=== PATIENT | male | born 1990 | race Caucasian/White ===

== ENCOUNTER 2019-03-26 20:05 | Emergency (ER) | payer OTHER, SELFPAY ==
[2019-03-26 20:25] VITALS: BP 161/96; PULSE 85; RESP 18; TEMP 37.2; O2SAT 98; BMI 37.8
[2019-03-26] MEDS: cephALEXin 250 MG CAPSULE 500 MG PO (20:43)
--- NOTE | 2019-03-26 21:15 | ED.SKABFB ---
HPI - Skin/Abscess/Foreign Bdy <ROSALES Brunson - Last Filed: 03/26/19 21:18> General Chief complaint: Skin/Abscess/Foreign Body Stated complaint: states infected skin tag/ mole on lwr left abdomen Time Seen by Provider: 03/26/19 20:19 Source: patient and family Mode of arrival: ambulatory Limitations: no limitations History of Present Illness HPI narrative: The patient is a 29-year-old male current smoker with history of right ankle sprain who presents with a chief complaint of a infection. He states that the infection is on his left lower quadrant, we tried to cut off his own skin tag with a knife. He states it happened earlier today, but since then he has noted increasing pain, and redness extending from the site. He denies any fevers nausea vomiting diarrhea chest pain or shortness of breath. Related Data Home Medications Medication Instructions Recorded Confirmed acetaminophen 325 mg PO #0 02/19/17 Previous Rx's Medication Instructions Recorded ibuprofen 800 mg PO Q8HP PRN #30 tab 02/19/17 cephalexin 500 mg PO TID 10 Days #30 cap 03/26/19 Allergies Allergy/AdvReac Type Severity Reaction Status Date / Time No Known Drug Allergies Allergy Verified 03/26/19 20:38 Review of Systems <ROSALES Brunson - Last Filed: 03/26/19 21:18> Review of Systems GENERAL: Denies chills, fatigue, malaise, fever, sweats. HEENT: Denies sinus pain, ear pain, sore throat, difficulty swallowing, dizziness. RESPIRATORY: Denies dyspnea, cough, wheezing, hemoptysis, sputum. CARDIOVASCULAR: Denies chest pain, palpitations, orthopnea, edema, GASTROINTESTINAL: Denies nausea, vomiting, abdominal pain, diarrhea, constipation, melena. : Denies dysuria, frequency, incontinence, hematuria, urinary retention. MUSCULOSKELETAL: denies weakness, joint pain, or bony pain SKIN: See HPI NEUROLOGIC: Denies weakness, headache, numbness, change in speech, confusion, seizures, incoordination. PSYCHIATRIC: No concerning psychosocial issues. 12 point review of systems is negative except for those stated above PFSH <CARLOS Brunson - Last Filed: 03/26/19 21:18> Social History Smoking Status: Current every day smoker Social History Smoking Status: Current every day smoker Exam <ROSALES Brunson - Last Filed: 03/26/19 21:18> Narrative Exam Narrative: GENERAL: Obese male in no acute distress HEAD: Atraumatic. Normocephalic. No temporal or scalp tenderness. EYES: Pupils equal round and reactive. Extraocular motions intact. No scleral icterus. No injection or drainage. ENT: Nose without bleeding, purulent drainage or septal hematoma. Throat without erythema, tonsillar hypertrophy or exudate. Uvula midline. Airway patent. NECK: Trachea midline. No JVD or lymphadenopathy. Supple, nontender, no meningeal signs. CARDIOVASCULAR: Regular rate and rhythm without murmurs, gallops, or rubs. RESPIRATORY: Clear to auscultation. Breath sounds equal bilaterally. No wheezes, rales, or rhonchi. No cough. No increased respiratory effort. No accessory muscle use. GASTROINTESTINAL: Abdomen soft, non-tender, nondistended. No hepato-splenomegaly, or palpable masses. No guarding. EXTREMITIES: No clubbing, cyanosis, or edema. No joint tenderness, effusion, or edema noted. BACK: Nontender without deformity or crepitance. No flank tenderness. NEURO: AOx3. SKIN: Wound noted on left lower quadrant of abdomen. Appears to be skin tag, with home removal attempt. Erythematous. No drainage noted. 2 cm of erythema surrounding site. Warm to touch. Initial Vital Signs Initial Vital Signs: Vital Signs Temperature 98.9 F 03/26/19 20:25 Pulse Rate 85 03/26/19 20:25 Respiratory Rate 18 03/26/19 20:25 Blood Pressure 161/96 H 03/26/19 20:25 Pulse Oximetry 98 03/26/19 20:25 <Servando Rincon DO - Last Filed: 03/27/19 07:03> Initial Vital Signs Initial Vital Signs: Vital Signs Temperature 98.9 F 03/26/19 20:25 Pulse Rate 85 03/26/19 20:25 Respiratory Rate 18 03/26/19 20:25 Blood Pressure 161/96 H 03/26/19 20:25 Pulse Oximetry 98 03/26/19 20:25 Course <ROSALES Brunson - Last Filed: 03/26/19 21:18> Orders Ordered: Discontinued Medications Cephalexin HCl (Keflex) 500 mg PO NOW ONE Stop: 03/26/19 20:30 Last Admin: 03/26/19 20:43 Dose: 500 mg Vital Signs - 8 hr 03/26/19 20:25 Temperature 98.9 F Pulse Rate 85 Respiratory Rate 18 Blood Pressure 161/96 H Pulse Oximetry 98 <Servando Rincon DO - Last Filed: 03/27/19 07:03> Orders Ordered: Discontinued Medications Cephalexin HCl (Keflex) 500 mg PO NOW ONE Stop: 03/26/19 20:30 Last Admin: 03/26/19 20:43 Dose: 500 mg Vital Signs - 8 hr 03/26/19 20:25 Temperature 98.9 F Pulse Rate 85 Respiratory Rate 18 Blood Pressure 161/96 H Pulse Oximetry 98 MDM - Skin/Abscess/Foreign Bdy <NEREIDA Brunson- - Last Filed: 03/26/19 21:18> MDM Narrative Medical decision making narrative: The patient is a 29-year-old male who presents with a chief complaint of possible skin infection. The patient unfortunately decided to remove his own skin tag at home, resulting in erythema and pain. His exam indicates early cellulitis, so I initiated treatment with Keflex. Discussed at length monitoring for signs of worsening infection including redness, fever etc. Encouraged follow-up with PCP. Patient was given contact information for [facility] health coordinator. No questions or concerns upon discharge. Discharge Plan Departure Patient Disposition: Home Clinical Impression: Cellulitis Qualifiers: Site of cellulitis: trunk Site of cellulitis of trunk: abdominal wall Qualified Code(s): L03.311 - Cellulitis of abdominal wall Discharge Date/Time: 03/26/19 21:11 Interventions: ED Discharge Assessment Last Done: 03/26/19 21:11 Instructions: DI for Cellulitis -- Adult Activity Restrictions/Additional Instructions: Please do not cut off your own skin tags anymore. Please follow up with primary care provider. I have given you contact information of the [facility] health resource conservation specialist. Please monitor for fever, spreading of redness or any acute changes. Please come back to the emergency department for any acute concerns. Prescriptions: New cephalexin 500 mg capsule 500 mg PO TID 10 Days Qty: 30 RF: 0 No Action acetaminophen 325 MG tablet 325 mg PO Qty: 0 RF: 0 ibuprofen 800 MG tablet 800 mg PO Q8HP PRNQty: 30 RF: 0 Referrals: [facility] [Outside] <Servando Rincon DO - Last Filed: 03/27/19 07:03> Cosign ED Attending Fabiola Attestation: I was immediately available in the department for consultation. Documentation has been reviewed. I agree with assessment and plan.
== END 2019-03-26 21:11 | disposition home or self-care (01) ==
PROVIDERS: Emergency Provider Nurse Practitioner Family
DX: L03.311 Cellulitis of abdominal wall (principal)
CPT/HCPCS: 99282; 99283

== ENCOUNTER 2019-03-27 19:18 | Emergency (ER) | payer OTHER, SELFPAY ==
[2019-03-27 19:38] VITALS: BP 140/94; PULSE 84; RESP 18; TEMP 36.2; O2SAT 100; BMI 32.5
[2019-03-27] MEDS: TET,DIPH,PERTUSS(ACELL),VAC/PF 0.5 ML SYRINGE IM (21:01)
--- NOTE | 2019-03-27 21:04 | ED.WOUNDLAC ---
HPI - Wound/Laceration <CARLOS Brunson - Last Filed: 03/27/19 21:08> General Chief Complaint: Wound/Laceration Stated Complaint: LACERATION OF RIGHT ARM Time Seen by Provider: 03/27/19 20:10 Source: patient and family Mode of arrival: ambulatory Limitations: no limitations History of Present Illness HPI narrative: The patient is a 29-year-old male current smoker who presents with a chief complaint of a puncture wound to his left AC. He states he was at work and accidentally impaled himself with a pen that was metal. He was seen at this facility yesterday after self extricating a skin tag with a knife. Yesterday status tetanus is up-to-date, but today he is not sure. He states he has full range of motion. He is mostly here because he is concerned about infection. He has not started antibiotics that were given to him yesterday, but plans on doing it later. Related Data Home Medications Medication Instructions Recorded Confirmed acetaminophen 325 mg PO #0 02/19/17 Previous Rx's Medication Instructions Recorded ibuprofen 800 mg PO Q8HP PRN #30 tab 02/19/17 cephalexin 500 mg PO TID 10 Days #30 cap 03/26/19 Allergies Allergy/AdvReac Type Severity Reaction Status Date / Time No Known Drug Allergies Allergy Verified 03/27/19 19:41 Review of Systems <CARLOS Brunson - Last Filed: 03/27/19 21:08> Review of Systems GENERAL: Denies chills, fatigue, malaise, fever, sweats. HEENT: Denies sinus pain, ear pain, sore throat, difficulty swallowing, dizziness. RESPIRATORY: Denies dyspnea, cough, wheezing, hemoptysis, sputum. CARDIOVASCULAR: Denies chest pain, palpitations, orthopnea, edema, GASTROINTESTINAL: Denies nausea, vomiting, abdominal pain, diarrhea, constipation, melena. : Denies dysuria, frequency, incontinence, hematuria, urinary retention. MUSCULOSKELETAL: See HPI SKIN: See HPI NEUROLOGIC: Denies weakness, headache, numbness, change in speech, confusion, seizures, incoordination. PSYCHIATRIC: No concerning psychosocial issues. 12 point review of systems is negative except for those stated above PFSH <CARLOS Brunson - Last Filed: 03/27/19 21:08> Social History Smoking Status: Current every day smoker Social History Smoking Status: Current every day smoker Exam <ROSALES Brunson - Last Filed: 03/27/19 21:08> Narrative Exam Narrative: GENERAL: This is a well-nourished, well-developed patient, no acute distress HEAD: Atraumatic. Normocephalic. No temporal or scalp tenderness. EYES: Pupils equal round and reactive. Extraocular motions intact. No scleral icterus. No injection or drainage. ENT: Nose without bleeding, purulent drainage or septal hematoma. Throat without erythema, tonsillar hypertrophy or exudate. Uvula midline. Airway patent. NECK: Trachea midline. No JVD or lymphadenopathy. Supple, nontender, no meningeal signs. CARDIOVASCULAR: Regular rate and rhythm RESPIRATORY: No cough. No increased respiratory effort. No accessory muscle use. EXTREMITIES: Full range of motion noted left arm. Able to flex extend left elbow. Able to pronate and supinate left forearm. Capillary refill intact less than 2 seconds all fingers left hand BACK: Nontender without deformity or crepitance. No flank tenderness. NEURO: AOx3. SKIN: 0.25 cm Puncture wound noted on anterior aspect of left AC. Initial Vital Signs Initial Vital Signs: Vital Signs Temperature 97.2 F L 03/27/19 19:38 Pulse Rate 84 03/27/19 19:38 Respiratory Rate 18 03/27/19 19:38 Blood Pressure 140/94 H 03/27/19 19:38 Pulse Oximetry 100 03/27/19 19:38 <Servando Rincon DO - Last Filed: 03/28/19 01:33> Initial Vital Signs Initial Vital Signs: Vital Signs Temperature 97.2 F L 03/27/19 19:38 Pulse Rate 84 03/27/19 19:38 Respiratory Rate 18 03/27/19 19:38 Blood Pressure 140/94 H 03/27/19 19:38 Pulse Oximetry 100 03/27/19 19:38 Course <ROSALES Brunson - Last Filed: 03/27/19 21:08> Orders Ordered: Discontinued Medications Diphtheria/Tetanus/Acell Pertussis (Adacel) 0.5 ml IM .ONCE ONE Stop: 03/27/19 19:48 Last Admin: 03/27/19 19:59 Dose: Not Given Diphtheria/Tetanus/Acell Pertussis (Adacel) 0.5 ml IM .ONCE ONE Stop: 03/27/19 20:15 Last Admin: 03/27/19 21:01 Dose: 0.5 ml Vital Signs - 8 hr 03/27/19 19:38 03/27/19 21:15 Temperature 97.2 F L Pulse Rate 84 80 Respiratory Rate 18 16 Blood Pressure 140/94 H 154/98 H Pulse Oximetry 100 100 <Servando Rincon DO - Last Filed: 03/28/19 01:33> Orders Ordered: Discontinued Medications Diphtheria/Tetanus/Acell Pertussis (Adacel) 0.5 ml IM .ONCE ONE Stop: 03/27/19 19:48 Last Admin: 03/27/19 19:59 Dose: Not Given Diphtheria/Tetanus/Acell Pertussis (Adacel) 0.5 ml IM .ONCE ONE Stop: 03/27/19 20:15 Last Admin: 03/27/19 21:01 Dose: 0.5 ml Vital Signs - 8 hr 03/27/19 19:38 03/27/19 21:15 Temperature 97.2 F L Pulse Rate 84 80 Respiratory Rate 18 16 Blood Pressure 140/94 H 154/98 H Pulse Oximetry 100 100 MDM - Wound/Laceration <ROSALES Brunson - Last Filed: 03/27/19 21:08> MDM Narrative Medical decision making narrative: The patient is a 29-year-old male who presents with a chief complaint of a puncture wound. He has full range of motion is neurovascularly intact in of his left arm. He does not want an x-ray. He declines an x-ray. His tetanus was needed today. I discussed at length follow up with PCP as well as watching for signs and symptoms of infection. The wound was cleansed and soaked and chlorhexidine. Discussed at length return precautions of severe fever, inability keep down fluids etc and encourage PCP follow-up. No questions or concerns upon discharge. Discharge Plan Departure Patient Disposition: Home Clinical Impression: Puncture wound Discharge Date/Time: 03/27/19 21:16 Interventions: ED Discharge Assessment Last Done: 03/27/19 21:15 Instructions: DI for Puncture Wound Activity Restrictions/Additional Instructions: Today we updated your tetanus. We copiously cleansed your puncture wound. Please follow up with primary care provider. Monitor for signs and symptoms of infection such as redness pus and swelling. Please be evaluated if Any of these occur. Please come back to emergency department for any acute concerns. Prescriptions: No Action acetaminophen 325 MG tablet 325 mg PO Qty: 0 RF: 0 ibuprofen 800 MG tablet 800 mg PO Q8HP PRNQty: 30 RF: 0 cephalexin 500 mg capsule 500 mg PO TID 10 Days Qty: 30 RF: 0 <Servando Rincon, DO - Last Filed: 03/28/19 01:33> Coschristal ED Attending Fabiola Attestation: I was immediately available in the department for consultation. Documentation has been reviewed. I agree with assessment and plan.
[2019-03-27 21:15] VITALS: BP 154/98; PULSE 80; RESP 16; O2SAT 100
== END 2019-03-27 21:16 | disposition home or self-care (01) ==
PROVIDERS: Emergency Provider Nurse Practitioner Family
DX: S41.132A Puncture wound without foreign body of left upper arm, initial encounter (principal); W26.8XXA Contact with other sharp object(s), not elsewhere classified, initial encounter; Y99.0 Civilian activity done for income or pay
CPT/HCPCS: 90471; 99283; 90715

== ENCOUNTER 2019-10-13 15:20 | Emergency (ER) | payer OTHER, SELFPAY ==
[2019-10-13 15:53] VITALS: BP 157/102; PULSE 78; RESP 18; TEMP 36.2; O2SAT 98; BMI 35.2
== END 2019-10-13 17:54 | disposition left against medical advice (07) ==
PROVIDERS: Emergency Provider Emergency Medicine
CPT/HCPCS: 99281

== ENCOUNTER 2020-09-12 20:54 | Emergency (ER) | payer OTHER, SELFPAY ==
[2020-09-12 21:00] VITALS: BP 177/87; PULSE 90; RESP 15; TEMP 36.6; O2SAT 96; BMI 38.0
--- NOTE | 2020-09-12 21:02 | DI.RAD.S_ITS ---
PROCEDURE: XR KNEE RT 3V INDICATIONS: knee pain TECHNIQUE: 3 views of the knee were acquired. COMPARISON: None. FINDINGS: Bones: No fractures or dislocations. No suspicious bony lesions. Soft tissues: No joint effusion. No suspicious soft tissue calcifications. IMPRESSION: No fracture. No osseous lesion. If symptoms and/or clinical suspicion for pathology persists, further assessment with repeat radiographs (7-10 days) or advanced imaging (e.g. CT, MRI or bone scan) should be considered. Dictated by: Lucinda Aguiar MD, PhD on 09/12/2020 at 21:26 Approved by: Lucinda Aguiar MD, PhD on 09/12/2020 at 21:27
--- NOTE | 2020-09-12 21:45 | ED.EXTPRO ---
HPI - Extremity Problem General Chief complaint: Extremity Problem,Nontraumatic Stated complaint: rt knee pain Time Seen by Provider: 09/12/20 20:55 Source: patient Mode of arrival: Ambulatory Limitations: no limitations History of Present Illness HPI Narrative: 30Mm nonsmoker with history of knee pain presents with the chief complaint of right knee pain starting 30 minutes prior to arrival. He denies any recent known or specific injury no over use. He does have a history of bad knees. He states his pain is worse with movement or ambulation and improves with rest. He denies numbness, tingling, or weakness. He does state that it feels wobbly with weight bearing, and unstable. He took some motrin and some tylenol prior to arrival. He's had no fever or chills. He denies any N/V/D. He's had no exposure to COVID. MD Complaint: extremity pain Onset (ago): minute(s) Pain Consistency: constant Location: right Quality: aching Radiation: none Relieving factors: rest Exacerbating factors: weight bearing, walking and palpation Related Data Home Medications Medication Instructions Recorded Confirmed acetaminophen 325 mg PO #0 02/19/17 Previous Rx's Medication Instructions Recorded ibuprofen 800 mg PO Q8HP PRN #30 tab 02/19/17 Allergies Allergy/AdvReac Type Severity Reaction Status Date / Time No Known Drug Allergies Allergy Verified 09/12/20 21:05 Review of Systems Constitutional Constitutional: Denies chills, Denies fatigue, Denies fever(s), Denies frequent falls, Denies lethargy and Denies weakness Eyes Eyes: Denies change in vision, Denies eye discharge, Denies irritation and Denies loss of vision ENT Ears, Nose, Mouth, and Throat: Denies change in voice, Denies dizziness, Denies neck pain, Denies sore throat and Denies throat swelling Cardiovascular Cardiovascular: Denies chest pain, Denies irregular heart rhythm, Denies lightheadedness, Denies palpitations, Denies dyspnea, Denies dyspnea on exertion and Denies orthopnea Respiratory Respiratory: Denies cough, Denies dyspnea, Denies dyspnea on exertion and Denies wheezing Gastrointestinal Gastrointestinal: Denies abdominal pain, Denies change in bowel habits, Denies diarrhea, Denies nausea and Denies vomiting Musculoskeletal Musculoskeletal: Reports arthralgias, Reports limited range of motion, Denies neck pain and Denies numbness Integumentary/Breasts Skin/Breast: Denies pruritus, Denies erythema, Denies rash and Denies wounds Neurologic Neurologic: Denies behavioral changes, Denies confusion, Denies dizziness, Denies frequent falls, Denies loss of vision, Denies numbness and Denies weakness Psychiatric Psychiatric: Denies anxiety, Denies behavioral changes, Denies confusion, Denies depression, Denies homicidal ideation and Denies suicidal ideation Endocrine Endocrine: Denies fatigue, Denies flushing and Denies palpitations Hematologic/Lymphatic Hematologic/Lymphatic: Denies easy bruising Allergic/Immunologic Allergic/Immunologic: Denies urticaria, Denies throat swelling and Denies wheezing Patient History Social History Smoking Status: Unknown if ever smoked Smoking Status: Unknown if ever smoked tobacco type: smokeless tobacco alcohol intake frequency: 0-2 drinks per day Substance Use Type: does not use Exam Narrative Exam Narrative: GEN: AOx3 and in mild distress EYES: Pupils are equal, round, and reactive to light and accommodation. Extraoccular muscles are intact bilaterally. There is no subconjunctival hemorrhage or exudate. CHEST: Lungs are clear to auscultation bilaterally and free of wheezes, rales, or rhonchi. Heart rate is regular rhythm, there are no murmurs, clicks, rubs, or gallops. There is no chest wall tenderness. ABD: Abdomen is soft and nontender. There is no guarding or rebound. Bowel sounds are normal in all 4 quadrants. There is no mass or organomegaly. EXT: Full but painful ROM of R knee. No effusion, erythema, or obvious warmth. Pain on lateral joint line, seems to be worse with Ciro's. No ligamentous instability. SKIN: Warm, pink, and dry. No erythema or rash Initial Vital Signs Initial Vital Signs: Vital Signs Temperature 97.8 F 09/12/20 21:00 Pulse Rate 90 09/12/20 21:00 Respiratory Rate 15 09/12/20 21:00 Blood Pressure 177/87 H 09/12/20 21:00 Pulse Oximetry 96 09/12/20 21:00 Procedures Orthopedic Splinting/Casting Injury #1: Side: right Lower Extremity Injury Location: knee Lower Extremity Immobilizer: knee immobilizer Post splinting neuro exam: intact Post splinting vascular exam: intact Placed by: Nursing Course Orders Ordered: ED Orders 09/12/20 21:02 XR knee RT 3V Stat Vital Signs Vital signs: Vital Signs - 8 hr 09/12/20 21:00 09/12/20 22:13 Temperature 97.8 F Pulse Rate 90 86 Respiratory Rate 15 18 Blood Pressure 177/87 H 177/89 H Pulse Oximetry 96 98 MDM - Extremity (Nontraumatic) Imaging Data Extremity x-ray #1: Radiologist's Impression: Jeremías Archer 30 M [address] [id number] ReportSigned Patient: Jeremías Archer GMR#: [id number]: 1990Acct:[id number]/Sex: 30 / MDate of Service: 09/12/20Loc: EDAccession Number: [id number] Procedure: XR knee RT 3V Ordering Provider: Servando Rincon D.O. PROCEDURE: XR KNEE RT 3V INDICATIONS: knee pain TECHNIQUE: 3 views of the knee were acquired. COMPARISON: None. FINDINGS: Bones: No fractures or dislocations. No suspicious bony lesions. Soft tissues: No joint effusion. No suspicious soft tissue calcifications. IMPRESSION: No fracture. No osseous lesion. If symptoms and/or clinical suspicion for pathology persists, further assessment with repeat radiographs (7-10 days) or advanced imaging (e.g. CT, MRI or bone scan) should be considered. Dictated by: Lucinda Aguiar MD, PhD on 09/12/2020 at 21:26 Approved by: Lucinda Aguiar MD, PhD on 09/12/2020 at 21:27 Discharge Plan Departure Patient Disposition: Home Clinical Impression: Strain of right knee Qualifiers: Encounter type: initial encounter Qualified Code(s): S86.911A - Strain of unspecified muscle(s) and tendon(s) at lower leg level, right leg, initial encounter Instructions: DI for Knee Sprain Activity Restrictions/Additional Instructions: *You have been diagnosed with [ right knee sprain, possible latearl collateral ligament or meniscus involvement. ] *What to do: *Take medications as directed *Follow up with your primary care provider in 5-7 days, call for an appointment. Let them know you were seen in the Emergency Department and that we ask that you be seen in follow up *Return to ER if you should have any new, worsening or concerning symptoms Prescriptions: No Action acetaminophen 325 MG tablet 325 mg PO Qty: 0 RF: 0 ibuprofen 800 MG tablet 800 mg PO Q8HP PRNQty: 30 RF: 0
[2020-09-12 22:13] VITALS: BP 177/89; PULSE 86; RESP 18; O2SAT 98
== END 2020-09-12 22:10 | disposition home or self-care (01) ==
PROVIDERS: Emergency Provider Emergency Medicine
DX: S86.911A Strain of unspecified muscle(s) and tendon(s) at lower leg level, right leg, initial encounter (principal)
CPT/HCPCS: 73562; 99283

== ENCOUNTER 2020-10-12 19:42 | Emergency (ER) | payer OTHER, SELFPAY ==
--- NOTE | 2020-10-12 19:48 | ED.LOWEXIN ---
HPI - Extremity Injury (Lower) General Chief Complaint: Extremity Injury, Lower Stated Complaint: right knee pain Time Seen by Provider: 10/12/20 19:45 Source: patient Mode of arrival: Ambulatory Limitations: no limitations History of Present Illness HPI Narrative: 30-year-old male comes emergency department complaint of right knee pain. Patient states he was seen here after having 115 lb dog ran into his right knee. He states he has had chronic knee issues over the last 20 years. 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 After the injury he was seen here in the emergency department. He has had continued worsen knee pain since then. Patient states that he followed up had an MRI and it was noted that he had a lateral meniscal tear, and ITB band tear, and some tissue/fat pad swelling prepatellar area. Patient states his knee has felt unstable. He has a knee immobilizer, he can wear it at home but getting in out of a car or work he is unable to continue using it. He states he is not able to take any time off work because of his financial situation. He has tried to find knee brace [id number] but because of his large body habitus he has had difficulty finding 1 that fits his body. Patient has been taking and ibuprofen without improvement. He had a prescription for meloxicam called in but the pharmacy does not take his insurance. Patient has follow-up this Wednesday on the with Orthopedic surgery. Related Data Home Medications Medication Instructions Recorded Confirmed acetaminophen 325 mg PO #0 02/19/17 Previous Rx's Medication Instructions Recorded ibuprofen 800 mg PO Q8HP PRN #30 tab 02/19/17 meloxicam 7.5 mg PO BID #20 tab 10/12/20 Allergies Allergy/AdvReac Type Severity Reaction Status Date / Time No Known Drug Allergies Allergy Verified 10/12/20 19:52 Review of Systems Review of Systems ROS Unobtainable: All systems reviewed & are unremarkable except as noted in HPI and below Patient History Social History Smoking Status: Unknown if ever smoked Smoking Status: Unknown if ever smoked tobacco type: smokeless tobacco alcohol intake frequency: 0-2 drinks per day Substance Use Type: does not use Exam Narrative Exam Narrative: GENERAL: Alert and oriented x three, well-nourished male in mild distress. Patient is sitting on the edge of the bed. HEENT: Head normocephalic, atraumatic, EOMI, pupils reactive, face symmetric, moist mucous membranes NECK: Supple, full range of motion EXTREMITIES: Normal range of motion, no clubbing. Mild swelling of the right knee in comparison to the left. Patient has tenderness particularly over the prepatellar area. Lateral collateral ligament. Patient does not have any warmth, no erythema. He has 2+ tibialis. Normal sensation throughout. Neurovascularly intact NEUROLOGICAL: Cranial nerves II through XII grossly intact. Moving all extremities SKIN: Warm, dry, no petechiae, no rashes or lesions. Initial Vital Signs Initial Vital Signs: Vital Signs Temperature 97.2 F L 10/12/20 19:52 Pulse Rate 85 10/12/20 19:52 Respiratory Rate 18 10/12/20 19:52 Blood Pressure 174/100 H 10/12/20 19:52 Pulse Oximetry 97 10/12/20 19:52 Course Orders Ordered: Discontinued Medications Hydrocodone Bitart/Acetaminophen (Hydrocodone/Acet 5/325 Prepack) 1 bottle MISC SEEINSTR ONE Stop: 10/12/20 19:59 Last Admin: 10/12/20 20:04 Dose: 1 bottle Documented by: DENISE Vital Signs Vital signs: Vital Signs - 8 hr 10/12/20 19:52 Temperature 97.2 F L Pulse Rate 85 Respiratory Rate 18 Blood Pressure 174/100 H Pulse Oximetry 97 MDM - Extremity Injury (Lower) MDM Narrative Medical decision making narrative: This is a pleasant 30-year-old male comes emergency department frustrated as he has been able to control his pain. His prescription for meloxicam he was not able to fill. He has follow-up with Orthopedic surgery but has been unable to find a brace that allows him to work adequately and immobilize his knee. Discussed that patient does need to decrease his Tylenol dose to a 1000 mg every 8 hours. To DC ibuprofen given prescription for meloxicam. Given a prepack of pain medication with a small amount of narcotic tonight. He was offered a work note but states that financially he is not able to accommodate. Encouraged him to use his knee immobilizer as much as possible and keep his appointment with Orthopedic surgery. Discharge Plan Departure Patient Disposition: Home Clinical Impression: Knee pain, right Activity Restrictions/Additional Instructions: Follow up with orthopedic surgery at your appointent on Wednesday. You may continue Tylenol with a maximum dose of a 1000 mg every 8 hours as needed. You may take meloxicam twice daily. Do not take this medication with ibuprofen. It is recommended that you continue to use the knee immobilizer. Return to the ER for fevers, rapidly worsening symptoms, rapidly worsening swelling, loss of sensation, numbness, inability ambulate or other new or concerning symptoms. Prescriptions: New meloxicam 7.5 mg tablet 7.5 mg PO BID Qty: 20 RF: 0 No Action acetaminophen 325 MG tablet 325 mg PO Qty: 0 RF: 0 ibuprofen 800 MG tablet 800 mg PO Q8HP PRNQty: 30 RF: 0
[2020-10-12 19:52] VITALS: BP 174/100; PULSE 85; RESP 18; TEMP 36.2; O2SAT 97; BMI 38.5
[2020-10-12] MEDS: HYDROCODONE/ACET 5/325 PREPACK 1 BOTTLE MISC (20:04)
[2020-10-12 20:20] VITALS: BP 144/91; PULSE 80; RESP 16; O2SAT 97
== END 2020-10-12 20:21 | disposition home or self-care (01) ==
PROVIDERS: Emergency Provider Emergency Medicine
DX: M25.561 Pain in right knee (principal)
CPT/HCPCS: 99281; 99283

== ENCOUNTER 2022-07-23 19:20 | Emergency (ER) | payer OTHER, SELFPAY ==
[2022-07-23 20:08] VITALS: BP 181/121; PULSE 79; RESP 20; TEMP 36.5; O2SAT 99; BMI 38.3
--- NOTE | 2022-07-23 20:15 | DI.RAD.S_ITS ---
PROCEDURE: XR SHOULDER RT MIN 2V INDICATIONS: injury TECHNIQUE: 3 views of the shoulder were acquired. COMPARISON: None. FINDINGS: Bones: No acute fractures or dislocations. There is a healed old right clavicular shaft fracture. No suspicious bony lesions. Visualized ribs appear intact. Soft tissues: No suspicious soft tissue calcifications. IMPRESSION: 1. No acute fracture or dislocation. Dictated by: Song Garnica M.D. on 07/23/2022 at 21:43 Approved by: Song Garnica M.D. on 07/23/2022 at 21:43
--- NOTE | 2022-07-23 23:25 | PC.NURSE ---
no obvious deformity or injury noted, pt was lifting when he felt the pain
--- NOTE | 2022-07-24 00:24 | ED_ITS ---
HPI - Extremity Injury (Upper) General Chief Complaint: Extremity Injury, Upper Stated Complaint: Rt shoulder inj Time Seen by Provider: 07/24/22 00:23 Source: patient Mode of arrival: Ambulatory Limitations: no limitations History of Present Illness HPI narrative: This is a 32-year-old male with history of left-sided orthopedic surgeries who states yesterday in the morning at work he went to lift the trailer of his truck closed and felt a pain in his right shoulder he describes it as being over the clavicle and posterior shoulder. Patient states movement makes it worse he feels a little bit numb in the 4th and 5th digits as well, patient felt a tearing and popping sensation when it occurred. He denies prior injuries to the shoulder he is never had surgery or interventions on the right shoulder. Peña mensah has had prior orthopedic surgery on the left arm, arthroscopic surgery on his knees, denies any daily medications. No known drug allergies. He took Tylenol and ibuprofen about 12 hours ago and states that was helpful at the time. Related Data Home Medications Medication Instructions Recorded Confirmed acetaminophen 325 mg tablet 325 mg PO ##0 02/19/17 Previous Rx's Medication Instructions Recorded ibuprofen 800 mg tablet 800 mg PO Q8HP PRN #30 tabs 02/19/17 meloxicam 7.5 mg tablet 7.5 mg PO BID #20 tabs 10/12/20 Allergies Allergy/AdvReac Type Severity Reaction Status Date / Time No Known Drug Allergies Allergy Verified 07/23/22 20:15 Review of Systems Review of Systems ROS Unobtainable: All systems reviewed & are unremarkable except as noted in HPI and below Patient History Social History Smoking Status: Unknown if ever smoked Smoking Status: Unknown if ever smoked tobacco type: smokeless tobacco alcohol intake frequency: 0-2 drinks per day Substance Use Type: does not use Exam Narrative Exam Narrative: GENERAL: Alert and oriented x three, male sleeping on the floor initially awakens and was evaluated in chair. HEENT: Head normocephalic, atraumatic, EOMI, pupils reactive, face symmetric, moist mucous membranes NECK: Supple, full range of motion EXTREMITIES: Patient has decreased range of motion with abduction, flexion extension but does have majority of range of motion. He is tender more over the distal clavicle, no obvious deformity, warmth erythema or swelling, he is less tender over the AC joint itself, no tenderness over the humerus, elbow, shoulder wrist or hands. Patient has equal coremaker helper bilaterally. 2+ radial pulse., no clubbing or edema. Neurovascularly intact. 5/5 muscle strength bilateral upper extremities. NEUROLOGICAL: Cranial nerves II through XII grossly intact. Moving all extremities SKIN: Warm, dry, no petechiae, no rashes or lesions. Initial Vital Signs Initial Vital Signs: Vital Signs Temperature 97.7 F 07/23/22 20:08 Pulse Rate 79 07/23/22 20:08 Respiratory Rate 20 07/23/22 20:08 Blood Pressure 181/121 H 07/23/22 20:08 Pulse Oximetry 99 07/23/22 20:08 Oxygen Delivery Method 07/23/22 20:08 Course Orders Ordered: ED Orders 07/23/22 20:15 XR shoulder RT min 2V Stat Vital Signs Vital signs: Vital Signs - 8 hr 07/24/22 01:11 Temperature 97.5 F L Pulse Rate 68 Respiratory Rate 20 Blood Pressure 168/110 H Pulse Oximetry 100 Oxygen Delivery Method Room Air MDM - Extremity Injury (Upper) Imaging Data Extremity x-ray #1: Radiologist's Impression: [place] [id number] XRay Report Signed Patient: Jeremías Archer MR#: [id number] : 1990 Acct:[id number] Age/Sex: 32 / M Date of Service: 07/23/22 Loc: ED Accession Number: [id number] ?? Procedure: XR shoulder RT min 2V Ordering Provider: Joy Black D.O. PROCEDURE:? XR SHOULDER RT MIN 2V ? INDICATIONS:? injury ? TECHNIQUE:? 3 views of the shoulder were acquired.? ? COMPARISON:? None. ? FINDINGS:? ? Bones:? No acute fractures or dislocations.? There is a healed old right clavicular shaft fracture.? No suspicious bony lesions.? Visualized ribs appear intact.? ? Soft tissues:? No suspicious soft tissue calcifications.? ? IMPRESSION:? ? 1. No acute fracture or dislocation. ? ? Dictated by: Song Garnica M.D. on 07/23/2022 at 21:43 ? ? Approved by: Song Garnica M.D. on 07/23/2022 at 21:43?? MDM Narrative Medical decision making narrative: 32-year-old male with complaint of right shoulder injury with otherwise reassuring x-ray, exam shows pain but no emergent changes, plan for follow-up patient defers sling, he defers work note, he did fill out L and I paperwork. Discharge Plan Departure Patient Disposition: Home Clinical Impression: Injury of right shoulder Instructions: Shoulder Sprain Activity Restrictions/Additional Instructions: You may have sprained your shoulder or possibly torn the rotator cuff, I would recommend follow-up with orthopedic surgery. Please call them tomorrow to set up an appointment. Let them know you are on L& I patient. You can use a sling if you would like to but it is not required I do recommend no heavy lifting greater than 10 lb currently. Please take ibuprofen up to 800 mg every 8 hours and/or Tylenol up to a 1000 mg every 6 hours as needed for pain. You may use ice to the affected area hourly. Please return for rapidly worsening symptoms new weakness, numbness loss of sensation inability to lift or move your shoulder or other new or concerning changes. Prescriptions: No Action acetaminophen 325 MG tablet 325 mg PO Qty: 0 ibuprofen 800 MG tablet 800 mg PO Q8HP PRNQty: 30 0RF meloxicam 7.5 mg tablet 7.5 mg PO BID Qty: 20 0RF Referrals: Izabel Valdez MD [Physician] - Stand Alone Forms: Work Release Note Visit Report Forms: Patient Portal/API
[2022-07-24 01:11] VITALS: BP 168/110; PULSE 68; RESP 20; TEMP 36.4; O2SAT 100
== END 2022-07-24 01:14 | disposition home or self-care (01) ==
PROVIDERS: Emergency Provider Emergency Medicine
DX: S49.91XA Unspecified injury of right shoulder and upper arm, initial encounter (principal); X50.9XXA Other and unspecified overexertion or strenuous movements or postures, initial encounter; Y99.0 Civilian activity done for income or pay
CPT/HCPCS: 73030; 99281; 99283

== ENCOUNTER 2024-04-10 17:04 | Emergency (ER) | payer OTHER, SELFPAY ==
[2024-04-10 17:07] VITALS: BP 193/107; PULSE 79; RESP 18; TEMP 36.4; O2SAT 99; BMI 39.3
--- NOTE | 2024-04-10 17:35 | DI.US.S_ITS ---
PROCEDURE: US SCROTUM INDICATIONS: LEFT TESTICULAR PAIN TECHNIQUE: Real-time scanning was performed of the scrotum and testicles, with image documentation. Color and pulse Doppler interrogation was performed of both testicles. COMPARISON: None. FINDINGS: Right: Testicle is normal in size at 4.5 x 2.5 x 3.6 cm, and homogenous in echotexture. Epididymis is normal in overall size and morphology. Small hydrocele. No varicocele. Overlying scrotal skin is normal in thickness. Left: Testicle is normal in size at 0.9 x 2.5 x 3.1 cm, and homogeneous in echotexture. Epididymis is normal in size and mildly heterogeneous in morphology with two anechoic simple cysts in the epididymal head measuring up to 7 mm. Small hydrocele. No varicocele. Overlying scrotal skin is normal in thickness. Doppler: Color and pulse Doppler demonstrate normal and symmetric arterial flow in both testicles. IMPRESSION: 1. No sonographic abnormality to explain patient's testicular pain. 2. Two anechoic simple cysts in the left epididymal head measuring up to 7 mm. Dictated by: Den Coy M.D. on 04/10/2024 at 18:45 Approved by: Den Coy M.D. on 04/10/2024 at 18:47
--- NOTE | 2024-04-10 18:38 | ED.MALEGU ---
HPI - Male Genitourinary General Chief complaint: Urogenital-Male Stated complaint: lower back px Time Seen by Provider: 04/10/24 18:07 Source: patient Mode of arrival: Ambulatory History of Present Illness HPI Narrative: 34-year-old male presents by private vehicle from home for 1 week of left testicular pain. Pain is constant, does not radiate, nothing seems to make it better or worse. Patient states that today he noticed left-sided lower back pain and his prompted him to come to the ER for evaluation. No medications taken for pain prior to arrival. Denies difficulty urinating, hematuria, dysuria, discharge from the penis. Related Data Home Medications Medication Instructions Recorded Confirmed acetaminophen 325 mg tablet 325 mg PO ##0 02/19/17 Previous Rx's Medication Instructions Recorded ibuprofen 800 mg tablet 800 mg PO Q8HP PRN #30 tabs 02/19/17 meloxicam 7.5 mg tablet 7.5 mg PO BID #20 tabs 10/12/20 Allergies Allergy/AdvReac Type Severity Reaction Status Date / Time No Known Drug Allergies Allergy Verified 07/23/22 20:15 Patient History Social History Smoking Status: Never smoker Smoking Status: Never smoker tobacco type: smokeless tobacco alcohol intake frequency: 0-2 drinks per day Alcohol type: beer Substance Use Type: does not use Exam Initial Vital Signs Initial Vital Signs: Vital Signs Temperature 97.6 F 04/10/24 17:07 Pulse Rate 79 04/10/24 17:07 Respiratory Rate 18 04/10/24 17:07 Blood Pressure 193/107 H 04/10/24 17:07 Pulse Oximetry 99 04/10/24 17:07 Oxygen Delivery Method Room Air 04/10/24 17:07 Const: Awake, alert, no acute distress, nontoxic appearing GI: Soft, nontender, nondistended, no rebound, no guarding, no hernias : External genitalia normal, circumcised, cremasteric reflex present, no masses palpated, generalized tenderness over left testicle MSK back: No midline tenderness, no CVA tenderness bilaterally, left lower paraspinal tenderness Skin: Warm, Dry, intact, no rashes Neuro: AO x3, CN II-XII grossly intact, moves all extremities Course Orders Ordered: Discontinued Medications Ketorolac Tromethamine (Ketorolac 30 Mg/Ml Vial) 15 mg IV NOW ONE Stop: 04/10/24 18:39 Last Admin: 04/10/24 19:04 Dose: 15 mg Documented By: KAYKAY Vital Signs Vital signs: Vital Signs - 8 hr 04/10/24 17:07 04/10/24 19:45 Temperature 97.6 F Pulse Rate 79 81 Respiratory Rate 18 17 Blood Pressure 193/107 H Pulse Oximetry 99 99 Oxygen Delivery Method Room Air Room Air MDM - Male Genitourinary Differential Diagnosis Differential diagnosis: Likely urinary tract infection, epididymitis and inguinal hernia Lab Data 04/10/24 18:56 04/10/24 18:56 Labs: Lab Results 04/10/24 Range/Units 18:56 WBC 6.0 (4.5-11.0) X10^3/uL RBC 4.55 (4.5-5.9) X10^6/uL Hgb 13.8 (13.5-17.5) g/dL Hct 38.6 L (41-53) % MCV 84.8 (80-100) fL MCH 30.3 (26-34) PG MCHC 35.7 (30-36) % RDW 13.2 (11.6-14.8) % Plt Count 200 (150-400) X10^3/uL Neut % (Auto) 50.8 (50-75) % Lymph % (Auto) 32.6 (25-40) % [place] % (Auto) 13.4 (3-14) % Eos % (Auto) 2.5 (2-4) % Baso % (Auto) 0.7 (0-2) % Neut # (Auto) 3100 (2486-4731) /uL Lymph # (Auto) 2000 (9050-5923) /uL [place] # (Auto) 800 (0-900) /uL Eos # (Auto) 200 (0-450) /uL Baso # (Auto) 0 (0-100) /uL Sodium 138 (137-145) mmol/L Potassium 3.2 L (3.4-5.1) mmol/L Chloride 105 (98-107) mmol/L Carbon Dioxide 26 (22-32) mmol/L BUN 16 (9-20) mg/dL Creatinine 0.93 (0.66-1.25) mg/dL Estimated GFR > 60 (>60) mL/min BUN/Creatinine Ratio 17.2 (6-22) Glucose 106 H (70-100) mg/dL Calcium 9.2 (8.4-10.2) mg/dL Total Bilirubin 0.5 (0.2-1.3) mg/dL AST 58 (17-59) IU/L ALT 64 H (<50) IU/L Alkaline Phosphatase 78 (38-126) U/L Total Protein 7.2 (6.3-8.2) g/dL Albumin 4.1 (3.5-5.0) g/dL Globulin 3.1 (1.7-4.1) g/dL Albumin/Globulin Ratio 1.3 (1.0-2.8) Urine Dip Bedside Urine Glucose Negative Bedside Urine Bilirubin - Negative Bedside Urine Ketone - Negative Urine Specific [place] 1.030 Bedside Urine Occult Blood - Negative Bedside Urine pH 6.0 Bedside Urine Protein - Negative Bedside Urine Urobilinogen - Negative Bedside Urine Nitrite - Negative Bedside Urine Leukocytes - Negative Esterase Imaging Data US - ASSISTANT CHIEF NURSING OFFICER: Radiologist's Impression: PROCEDURE: US SCROTUM INDICATIONS: LEFT TESTICULAR PAIN TECHNIQUE: Real-time scanning was performed of the scrotum and testicles, with image documentation. Color and pulse Doppler interrogation was performed of both testicles. COMPARISON: None. FINDINGS: Right: Testicle is normal in size at 4.5 x 2.5 x 3.6 cm, and homogenous in echotexture. Epididymis is normal in overall size and morphology. Small hydrocele. No varicocele. Overlying scrotal skin is normal in thickness. Left: Testicle is normal in size at 0.9 x 2.5 x 3.1 cm, and homogeneous in echotexture. Epididymis is normal in size and mildly heterogeneous in morphology with two anechoic simple cysts in the epididymal head measuring up to 7 mm. Small hydrocele. No varicocele. Overlying scrotal skin is normal in thickness. Doppler: Color and pulse Doppler demonstrate normal and symmetric arterial flow in both testicles. IMPRESSION: 1. No sonographic abnormality to explain patient's testicular pain. 2. Two anechoic simple cysts in the left epididymal head measuring up to 7 mm. Dictated by: Den Coy M.D. on 04/10/2024 at 18:45 Approved by: Den Coy M.D. on 04/10/2024 at 18:47 CT scan - abdomen/pelvis: Radiologist's Impression: PROCEDURE: CT KIDNEY URETER BLADDER (KUB) INDICATIONS: L TESTICLE/FLANK PAIN TECHNIQUE: Axial sections were acquired from the lung bases to the pubic symphysis. Coronal and sagittal reformats were performed. For radiation dose reduction, the following was used: automated exposure control, adjustment of mA and/or kV according to patient size. COMPARISON: None. FINDINGS: Image quality: Diagnostic. Lower Chest: No significant findings. URINARY: Right Kidney: No stones or hydronephrosis. Right Ureter: No hydroureter. Left Kidney: No stones or hydronephrosis. Left Ureter: No hydroureter. Bladder: Normal wall thickness. No stones. ABDOMEN: Liver: No contour-deforming solid mass. Diffuse hypoattenuation of the liver with sparing in the gallbladder fossa. Gallbladder: No radiopaque gallstones or wall thickening. Biliary ducts: No biliary dilation. Pancreas: No ductal dilation. Spleen: Size is within normal limits. Splenule. Adrenal Glands: No adrenal nodules. Stomach and Bowel: Normal colonic caliber, without significant wall thickening. Normal appendix (2/73). No diverticulosis. Peritoneum: No abnormal intraperitoneal fluid. No free air. Ventral Wall: Tiny fat containing umbilical hernia. Abdominal Nodes: No enlarged retroperitoneal or mesenteric lymph nodes. Vessels: Aorta and inferior vena cava are normal in size. Punctate calcification of the infrarenal abdominal aorta and right common iliac artery. PELVIS: Pelvic Organs: Unremarkable. Pelvic Nodes: Unremarkable. Miscellaneous: No inguinal hernias are seen. Bones: No acute fractures. No aggressive appearing lytic or blastic osseous lesions. IMPRESSION: Evaluation of the visceral organs is limited due to the lack of intravenous contrast. 1. No obstructing stones or hydronephrosis. 2. Nonobstructive bowel. Normal appendix. No diverticulosis. 3. No inguinal hernia. 4. Punctate atherosclerotic calcification of the infrarenal abdominal aorta and right common iliac artery, premature given patient's age. Dictated by: Den Coy M.D. on 04/10/2024 at 19:19 Approved by: Den Coy M.D. on 04/10/2024 at 19:30 [facility] Narrative Medical decision making narrative: Well-appearing patient with 1 week of symptoms. Physical exam is relatively benign, patient reporting pain to General palpation over his testicle without any masses or lesions. With associated history of low back pain differential includes kidney stones, epididymitis,, torsion much less likely due to normal cremasteric reflex and 1 week of symptoms. Laboratory work and ultrasound imaging Laboratory work reviewed, unremarkable. No signs of infection or abnormal kidney function. Ultrasound negative for acute findings. CT imaging negative for explanation of patient's testicular pain or back pain. Incidental note made of small atherosclerotic changes, which are premature based on patient's age. Patient counseled on all lab and imaging findings. He states that he was not follow up normally with a primary care doctor. Patient was informed of his early atherosclerotic findings and strongly recommended that patient follow up with the primary care doctor for general maintenance health exams. Discharge Plan Departure Patient Disposition: Home Clinical Impression: Pain in left testicle Instructions: DI for Testicular Pain Activity Restrictions/Additional Instructions: Your laboratory work, CT imaging, and ultrasound were normal. You did not have any masses, stones, or signs of infection. It was incidentally noted that you have some calcium buildup on the blood vessels in your CT scan. This does tend to happen with age, but you are on the young range for this to happen. I highly recommend following up with a primary care doctor for maintenance and preventive testing. If you continue to experience testicle pain I recommend following up with Urology, a referral number has been provided. Wear supportive underwear, take Tylenol and ibuprofen as needed, and apply ice as needed for comfort. Prescriptions: No Action acetaminophen 325 MG tablet 325 mg PO Qty: 0 ibuprofen 800 MG tablet 800 mg PO Q8HP PRNQty: 30 0RF meloxicam 7.5 mg tablet 7.5 mg PO BID Qty: 20 0RF Referrals: Isidro Loo DO [Physician] - Miscellaneous,MD Rory [Primary Care Provider] - Stand Alone Forms: Patient Portal/API
[2024-04-10 19:04] LABS: Add Manual Diff / Slide Review NO; Basophils Absolute Auto 0 /uL (0-100); Basophils Percent Auto 0.7 % (0-2); Eosinophils Absolute Auto 200 /uL (0-450); Eosinophils Percent Auto 2.5 % (2-4); Hematocrit 38.6 % (41-53); Hemoglobin 13.8 g/dL (13.5-17.5); Lymphocytes Absolute Auto 2000 /uL (1100-4500); Lymphocytes Percent Auto 32.6 % (25-40); Mean Corpuscular HGB Conc 35.7 % (30-36); Mean Corpuscular Hemoglobin 30.3 PG (26-34); Mean Corpuscular Volume 84.8 fL (80-100); Monocytes Absolute Auto 800 /uL (0-900); Monocytes Percent Auto 13.4 % (3-14); Neutrophils Absolute Auto 3100 /uL (1500-7000); Neutrophils Percent Auto 50.8 % (50-75); Platelet Count 200 X10^3/uL (150-400); Red Blood Cell Count 4.55 X10^6/uL (4.5-5.9); Red Cell Distribution Width 13.2 % (11.6-14.8)
[2024-04-10] MEDS: KETOROLAC 30 MG/ML VIAL 15 MG IV (19:04)
[2024-04-10 19:16] LABS: Alanine Aminotransferase 64 IU/L (<50); Albumin 4.1 g/dL (3.5-5.0); Albumin Globulin Ratio 1.3 (1.0-2.8); Alkaline Phosphatase 78 U/L (38-126); Aspartate Aminotransferase 58 IU/L (17-59); BUN Creatinine Ratio 17.2 (6-22); Bilirubin Total 0.5 mg/dL (0.2-1.3); Blood Urea Nitrogen 16 mg/dL (9-20); Calcium 9.2 mg/dL (8.4-10.2); Carbon Dioxide 26 mmol/L (22-32); Chloride 105 mmol/L (98-107); Estimated Glomerular Filt Rate > 60 mL/min (>60); Globulin 3.1 g/dL (1.7-4.1); Glucose 106 mg/dL (70-100); HEMOLYSIS < 15 (0-50); Potassium 3.2 mmol/L (3.4-5.1); Sodium 138 mmol/L (137-145); Total Protein 7.2 g/dL (6.3-8.2)
[2024-04-10 19:45] VITALS: PULSE 81; RESP 17; O2SAT 99
[2024-04-10 19:46] VITALS: BP 167/98; PULSE 73; RESP 17; O2SAT 99
[2024-04-10 20:00] VITALS: BP 170/106; PULSE 73; O2SAT 99
[2024-04-10 20:30] VITALS: BP 176/100; PULSE 77; RESP 18; O2SAT 98
== END 2024-04-10 21:04 | disposition home or self-care (01) ==
PROVIDERS: Emergency Provider Emergency Medicine
DX: N50.812 Left testicular pain (principal)
CPT/HCPCS: 36415; 74176; 76870; 80053; 81003; 85025; 93975; 96374; 99284; J1885